=== PATIENT | female | born 1990 | race Hispanic/Latino ===

== ENCOUNTER → 2024-06-16 | Outpatient (CLI) | payer OTHER ==
--- NOTE | 2024-06-16 13:26 | HMCIMG ---
HIP UNILAT 2-3VW RIGHT REASON: RIGHT HIP PAIN COMPARISON: None TECHNIQUE: AP pelvis and 2 views of the right hip performed, 3 views total. FINDINGS: There are normal-appearing bones. There are no fractures. Hip joint spaces appear normal as do sacroiliac joint spaces. Soft tissues appear unremarkable as well. IMPRESSION: 1. Normal views of the pelvis and right hip.
== END | disposition home or self-care (01) ==
LOC: RAH 11:40
PROVIDERS: ATTEND Family Medicine
DX: M25.551 Pain in right hip (principal)
CPT/HCPCS: 73502